=== PATIENT | male | born 1965 | race African-American/Black ===

== ENCOUNTER 2022-10-18 19:51 | Emergency (ER) | payer OTHER ==
[2022-10-18 19:58] VITALS: BP 134/71; PULSE 97; RESP 16; TEMP 96.7
== END 2022-10-18 22:05 | disposition home or self-care (01) ==
LOC: JER 19:51
DX: R55 Syncope and collapse (principal); F19.920 Other psychoactive substance use, unspecified with intoxication, uncomplicated
CPT/HCPCS: 93005; 93010; 99284-25